=== PATIENT | female | born 1955 | race Caucasian/White ===

== ENCOUNTER 2025-01-12 10:29 | Day surgery (SDC) | payer MEDICARE, BC ==
[2025-01-12] MEDS: Lactated Ringers 1,000 ML IV SCH (10:41)
[2025-01-12] MEDS ORDERED: Propofol 200 MG/20 ML SDV ONE ×2 (11:21→11:58)
== END 2025-01-12 13:26 | disposition home or self-care (01) ==
LOC: VM.SDS 10:29
PROVIDERS: ATTEND Surgery
DX: Z12.11 Encounter for screening for malignant neoplasm of colon (principal); D12.0 Benign neoplasm of cecum; D12.2 Benign neoplasm of ascending colon; E03.9 Hypothyroidism, unspecified; F41.9 Anxiety disorder, unspecified; F32.9 Major depressive disorder, single episode, unspecified; N18.31 Chronic kidney disease, stage 3a; Z88.8 Allergy status to other drugs, medicaments and biological substances; Z79.890 Hormone replacement therapy; Z79.899 Other long term (current) drug therapy
CPT/HCPCS: 00811; J2704; J7120